=== PATIENT | female | born 1955 | race Caucasian/White ===

== ENCOUNTER 2018-12-31 08:45 | Day surgery (SDC) ==
[~2018-12-31 08:45] MED LIST: BETADINE OPTH PREP OP PRN; BRIMONIDINE TARTRATE 0.2% OPTH SOL OP PRN; BSS WITH EPINEPHRINE OP ONE; DEX-MOXI-KETOR OPTH INJ 1/0.5/0.4 MG/ML IO ONE; LIDOCAINE 1%/PHENYLEPHRINE 1.5% BSS (SURGERY) INTRAOCULA ONE; ZOFRAN 4 MG/2 ML IVP ONE
[2018-12-31] MEDS ORDERED: LIDOCAINE 1% 20 ML MDV ID STA (09:15)
[2018-12-31] MEDS: CYCLOGYL 2% OPTH OP PRN ×3 (09:15→09:25)
[2018-12-31] MEDS: TETRACAINE 0.5% UNIT-DOSE OP PRN ×3 (09:15→09:53)
[2018-12-31] MEDS ORDERED: ZOFRAN 4 MG/2 ML ONE (09:50)
[2018-12-31] MEDS ORDERED: SUBLIMAZE ONE (09:50)
[2018-12-31] MEDS ORDERED: VERSED ONE (09:50)
[2018-12-31 13:01] VITALS: TEMP 97.8
[2018-12-31 15:54] VITALS: BP 113/78
== END 2018-12-31 10:45 | disposition home or self-care (01) ==
LOC: SURG 08:45
PROVIDERS: ATTEND Ophthalmology
DX: H25.812 Combined forms of age-related cataract, left eye (principal)

== ENCOUNTER 2019-01-14 08:40 | Day surgery (SDC) ==
[~2019-01-14 08:40] MED LIST changes: +LIDOCAINE 1% 20 ML MDV ID STA
[2019-01-14] MEDS: TETRACAINE 0.5% UNIT-DOSE OP PRN ×2 (08:50→09:20)
[2019-01-14] MEDS: CYCLOGYL 2% OPTH OP PRN ×3 (08:50→09:00)
[2019-01-14] MEDS ORDERED: SUBLIMAZE ONE (09:23)
[2019-01-14] MEDS ORDERED: VERSED ONE (09:23)
[2019-01-14] MEDS ORDERED: ZOFRAN 4 MG/2 ML ONE (09:23)
[2019-01-14 11:11] VITALS: TEMP 98.1
[2019-01-17 17:02] VITALS: BP 132/68
== END 2019-01-14 10:15 | disposition home or self-care (01) ==
LOC: SURG 08:40
PROVIDERS: ATTEND Ophthalmology
DX: H25.811 Combined forms of age-related cataract, right eye (principal)